=== PATIENT | male | born 1955 | race African-American/Black ===

== ENCOUNTER → 2023-01-26 | Outpatient (CLI) | payer BC ==
[2023-01-26 10:55] LABS: BASOPHILS % 0.8 % (0.0-2.0); EOSINOPHILS % 6.9 % (0.0-5.0); HEMATOCRIT. 51.7 % (42.0-52.0); HEMOGLOBIN. 17.4 g/dL (14.0-18.0); LYMPHOCYTES % 24.9 % (20.0-50.0); MEAN CORPUSCULAR HEMOGLOBIN 28.5 pg (28.0-32.0); MEAN CORPUSCULAR VOLUME 84.7 fL (80.0-94.0); MEAN PLATELET VOLUME 9.9 fl (7.4-10.4); MONOCYTES % 6.1 % (2.0-8.0); NEUTROPHILS % 61.3 % (40.0-76.0); PLATELET 212 x1000/uL (130-400); RED CELL DISTRIBUTION WIDTH 14.6 % (11.6-14.6)
[2023-01-26 11:06] LABS: CHLORIDE 102 mEq/L (98-107)
[2023-01-26 11:19] LABS: HDL CHOLESTEROL 43 mg/dL (40-59); LDL CHOLESTEROL 117 mg/dL (5-100); PHOSPHORUS 3.3 mg/dL (2.5-4.9); T4 FREE 1.32 ng/dL (0.76-1.46)
== END | disposition home or self-care (01) ==
LOC: LAB 10:10
PROVIDERS: ATTEND Internal Medicine Endocrinology, Diabetes & Metabolism
DX: R00.0 Tachycardia, unspecified (principal); E83.52 Hypercalcemia; I10 Essential (primary) hypertension; E11.9 Type 2 diabetes mellitus without complications
CPT/HCPCS: 36415; 71046; 80053; 80061; 82164; 83036; 83735; 83970; 84100; 84439; 84443; 84681; 85025; 93005